=== PATIENT | female | born 1985 | race African-American/Black ===

== ENCOUNTER 2025-03-07 18:53 | Observation (INO) | payer OTHER ==
[2025-03-07] MEDS: SODIUM CHLORIDE 0.9% 500 ML INFUS.BAG IV ONE ×2 (19:30→21:15)
[2025-03-07] MEDS ORDERED: ACETAMINOPHEN INJECTION 100 ML ONE (19:30)
[2025-03-07] MEDS: ACETAMINOPHEN 1000 MG/100 ML BAG IVPB ONE (19:35)
[2025-03-07 20:14] LABS: ABSOLUTE IMMATURE GRANULOCYTES 0.09 x10^3/uL (0.0-0.031); BASOPHILS # 0.04 x10^3/uL (0.01-0.08); EOSINOPHIL % 0.2 % (0.7-5.8); EOSINOPHILS # 0.04 x10^3/uL (0.04-0.36); HEMOGLOBIN 11.6 g/dL (11.2-15.7); MCHC 31.4 g/dl (32.2-35.5); MEAN CELL VOLUME 92.3 fl (79.4-94.8); MEAN PLT VOLUME 10.9 fl (9.4-12.3); MONOCYTE # 1.32 x10^3/uL (0.24-0.86); MONOCYTE % 7.4 % (4.7-12.5); PLATELET COUNT 301 x10^3/uL (182-369); RDW 13.1 % (12.1-16.8)
[2025-03-07 20:15] LABS: VENOUS BASE EXCESS -2.7 mmol/L (-2-2); VENOUS O2 SATURATION 61.6 % (70-80); VENOUS PCO2 36.8 mmHg (38-52); VENOUS PH 7.39 (7.310-7.410)
[2025-03-07 20:18] LABS: EPI CELLS >36 /uL (0-25.1); HYALINE CASTS 0 /uL (0-3.1); URINE BACTERIA 32 /uL (0-1359); URINE BILIRUBIN NEGATIVE (NEGATIVE); URINE COLOR YELLOW; URINE GLUCOSE (UA) NEGATIVE (NEGATIVE); URINE KETONE TRACE (NEGATIVE); URINE LEUK ESTERASE 2+ (NEGATIVE); URINE NITRITE NEGATIVE (NEGATIVE); URINE PROTEIN 1+ (NEGATIVE); URINE RBC 1006 /uL (0-23.9); URINE UROBILINOGEN 0.2 mg/dL (0.2-1.0); URINE WBC 451 /uL (0-25.8)
[2025-03-07 20:25] LABS: INR 1.37 (0.83-1.09); PROTHROMBIN TIME (PATIENT) 15.1 SEC (9.7-13.0)
[2025-03-07 20:35] LABS: POTASSIUM 3.5 mmol/L (3.5-5.1)
[2025-03-07 20:37] LABS: CALCIUM 9.4 mg/dL (8.5-10.1)
[2025-03-07 20:38] LABS: ALBUMIN 3.4 g/dl (3.4-5.0); BLOOD UREA NITROGEN 6.8 mg/dL (7-18)
[2025-03-07 20:41] LABS: CREATININE 1.1 mg/dL (0.55-1.3)
[2025-03-07 20:42] LABS: BILIRUBIN,TOTAL 0.7 mg/dL (0.2-1); TOT PROT 7.7 g/dl (6.4-8.2)
[2025-03-07] MEDS ORDERED: CEFTRIAXONE 1 G/50 ML PREMIX 50 ML IVPB ONE (21:01)
[2025-03-07 21:09] LABS: URINE APPEARANCE Error
[2025-03-07] MEDS: CEFTRIAXONE 1 GM in DEXTROSE 5%-WATER - 100 ML IVPB ONE (21:12)
[2025-03-08] MEDS: ACETAMINOPHEN 1000 MG/100 ML BAG IVPB PRN (03:36)
[2025-03-08] MEDS: SODIUM CHLORIDE 500 ML IV STA (03:40)
[2025-03-08 04:11] VITALS: BMI 36.7
[2025-03-08] MEDS: HEPARIN NA (PORCINE) 5,000 UNITS/ML 1ML VIAL SQ SCH (06:03)
[2025-03-08 07:36] LABS: HEMATOCRIT 32.2 % (34.1-44.9); MCHC 31.1 g/dl (32.2-35.5); MEAN CELL VOLUME 93.9 fl (79.4-94.8); PLATELET COUNT 264 x10^3/uL (182-369); RDW 13.2 % (12.1-16.8)
[2025-03-08 08:19] LABS: POTASSIUM 3.3 mmol/L (3.5-5.1)
[2025-03-08 08:25] LABS: BLOOD UREA NITROGEN 4.7 mg/dL (7-18); CALCIUM 8.2 mg/dL (8.5-10.1); MAGNESIUM 2.3 mg/dL (1.8-2.4)
[2025-03-08] MEDS ORDERED: ONDANSETRON 4 MG/2 ML VIAL IVPUSH PRN (08:26)
[2025-03-08 08:28] LABS: CREATININE 0.9 mg/dL (0.55-1.3)
[2025-03-08 08:29] LABS: BILIRUBIN,TOTAL 0.5 mg/dL (0.2-1); PHOSPHOROUS 1.3 mg/dL (2.5-4.9)
[2025-03-08 08:30] LABS: ALBUMIN 2.7 g/dl (3.4-5.0)
[2025-03-08] MEDS: SODIUM CHLORIDE 1,000 ML IV SCH (09:56)
[2025-03-08] MEDS: KCL 10 MEQ IVPB 10 MEQ/100 ML INFUS.BAG IVPB SCH (09:57)
[2025-03-08] MEDS: NAPH,MB-DB/K PH,MBDB POWDER PACKET PO SCH (09:57)
[2025-03-08] MEDS ORDERED: CEFTRIAXONE 1 GM in DEXTROSE 5%-WATER - 50 ML IVPB SCH (10:00)
[2025-03-08] MEDS ORDERED: ENOXAPARIN NA (PORCINE) 40 MG/0.4 ML DISP.SYRIN SQ SCH (10:00)
[2025-03-08] MEDS: SODIUM PHOSPHATE - 15 MM in SODIUM CHLORIDE 250 ML IVPB ONE (17:06)
[2025-03-08] MEDS: PIPERACILLIN/TAZOB 4.5 GM 4.5 GM in DEXTROSE 5%-WATER 100 ML IVPB ONE (17:17)
[2025-03-08] MEDS ORDERED: CEFTRIAXONE 1 G/50 ML PREMIX 50 ML IVPB SCH (20:00)
[2025-03-08] MEDS ORDERED: PIPERACILLIN/TAZOB 4.5 GM 4.5 GM/100 ML BAG IVPB SCH (22:00)
[2025-03-09] MEDS: PIPERACILLIN/TAZOB 4.5 GM 4.5 GM in DEXTROSE 5%-WATER 100 ML IVPB SCH ×2 (00:08→01:05)
[2025-03-09 08:01] LABS: ABSOLUTE IMMATURE GRANULOCYTES 0.01 x10^3/uL (0.0-0.031); BASOPHILS # 0.02 x10^3/uL (0.01-0.08); EOSINOPHIL % 1.9 % (0.7-5.8); EOSINOPHILS # 0.16 x10^3/uL (0.04-0.36); HEMATOCRIT 30.8 % (34.1-44.9); HEMOGLOBIN 9.7 g/dL (11.2-15.7); MCHC 31.5 g/dl (32.2-35.5); MEAN CELL VOLUME 94.5 fl (79.4-94.8); MEAN PLT VOLUME 11.3 fl (9.4-12.3); MONOCYTE # 1.09 x10^3/uL (0.24-0.86); MONOCYTE % 13.1 % (4.7-12.5); PLATELET COUNT 265 x10^3/uL (182-369); RDW 13.6 % (12.1-16.8)
[2025-03-09 08:19] LABS: POTASSIUM 3.4 mmol/L (3.5-5.1)
[2025-03-09 08:21] LABS: ALBUMIN 2.4 g/dl (3.4-5.0); CALCIUM 7.8 mg/dL (8.5-10.1)
[2025-03-09 08:22] LABS: BLOOD UREA NITROGEN 3.4 mg/dL (7-18); MAGNESIUM 2.4 mg/dL (1.8-2.4)
[2025-03-09 08:25] LABS: CREATININE 0.7 mg/dL (0.55-1.3)
[2025-03-09 08:27] LABS: BILIRUBIN,TOTAL 0.3 mg/dL (0.2-1); TOT PROT 5.7 g/dl (6.4-8.2)
[2025-03-09] MEDS: POTASSIUM CHLORIDE TABS 20 MEQ TABLET.ER (FP) PO ONE (14:13)
[2025-03-09 14:23] LABS: PHOSPHOROUS 2.7 mg/dL (2.5-4.9)
[2025-03-09 21:54] VITALS: RESP 18
[2025-03-10 08:09] LABS: ABSOLUTE IMMATURE GRANULOCYTES 0.04 x10^3/uL (0.0-0.031); BASOPHILS # 0.03 x10^3/uL (0.01-0.08); EOSINOPHIL % 3.9 % (0.7-5.8); EOSINOPHILS # 0.27 x10^3/uL (0.04-0.36); HEMATOCRIT 32.7 % (34.1-44.9); MCHC 30.6 g/dl (32.2-35.5); MEAN CELL VOLUME 95.6 fl (79.4-94.8); MEAN PLT VOLUME 10.8 fl (9.4-12.3); MONOCYTE # 0.65 x10^3/uL (0.24-0.86); MONOCYTE % 9.3 % (4.7-12.5); PLATELET COUNT 301 x10^3/uL (182-369); RDW 13.6 % (12.1-16.8)
[2025-03-10 08:22] LABS: CHLORIDE 109 mmol/L (98-107); POTASSIUM 4.1 mmol/L (3.5-5.1); SODIUM 141 mmol/L (136-145)
[2025-03-10 08:25] LABS: CALCIUM 8.3 mg/dL (8.5-10.1)
[2025-03-10 08:26] LABS: ALBUMIN 2.6 g/dl (3.4-5.0); ANION GAP 4 mmol/L (4-13); CO2 29 mmol/L (21-32); GLUCOSE,RANDOM 116 mg/dL (74-106); MAGNESIUM 2.1 mg/dL (1.8-2.4)
[2025-03-10 08:29] LABS: CREATININE 0.7 mg/dL (0.55-1.3); SGOT/AST 20 U/L (15-37); SGPT/ALT 22 U/L (13-61)
[2025-03-10 08:30] LABS: BILIRUBIN,TOTAL 0.4 mg/dL (0.2-1)
[2025-03-10 08:31] LABS: BLOOD UREA NITROGEN 2.6 mg/dL (7-18)
[2025-03-10 08:32] LABS: ALK PHOS 66 U/L (45-117)
[2025-03-10 11:08] VITALS: PULSE 78
[2025-03-10 13:47] VITALS: BP 120/72; TEMP 98.2
== END 2025-03-10 13:50 | disposition home or self-care (01) ==
LOC: JER 18:53 → JERBED 03-08 00:20 → J7W 03-08 03:18
PROVIDERS: ADMIT Student in an Organized Health Care Education/Training Program
PROC: 3E03329 Introduction of Other Anti-infective into Peripheral Vein, Percutaneous Approach (ICD-10-PCS; principal; 2025-03-08)
PROC: 3E033NZ Introduction of Analgesics, Hypnotics, Sedatives into Peripheral Vein, Percutaneous Approach (ICD-10-PCS; 2025-03-08)
PROC: 3E023GC Introduction of Other Therapeutic Substance into Muscle, Percutaneous Approach (ICD-10-PCS; 2025-03-08)
PROC: 3E0337Z Introduction of Electrolytic and Water Balance Substance into Peripheral Vein, Percutaneous Approach (ICD-10-PCS; 2025-03-08)
DX: N39.0 Urinary tract infection, site not specified (principal); B96.20 Unspecified Escherichia coli [E. coli] as the cause of diseases classified elsewhere; Z87.440 Personal history of urinary (tract) infections; E86.9 Volume depletion, unspecified
CPT/HCPCS: 36415; 71045-TC-FY; 76775-TC; 80053; 81003; 82803; 83605; 83735; 84100; 84484; 84703; 85025; 85027; 85610; 85730; 86803; 86850; 86900; 86901; 87040; 87086; 93005; 93010; 99291; G0378; J0131; J1644